=== PATIENT | female | born 1970 | race Caucasian/White ===

== ENCOUNTER 2017-02-11 10:19 | Emergency (ER) | payer OTHER ==
[~2017-02-11] VITALS: Ht 160 cm; Wt 70.8 kg
[~2017-02-11 10:19] MED LIST: AMERGE2.5 MG PO; CREON DR 12,001 EAC1 PO; FLAGYL250 MG PO; TOPIRAMATE50 MG PO
[2017-02-11 11:08] LABS: HEMATOCRIT 42.2 % (36.0-46.0); MCH 31.7 PG (29.0-34.0); MCHC 34.4 G/DL (30.0-36.0); MCV 92.1 FL (83-99); MEAN PLAT.VOLUME 10.6 uM^3 (9.5-12.4); PLATELET COUNT 257 K/uL (156-360); RBC DIS.WIDTH-SD 40.6 % (39-53); RED BLOOD COUNT 4.58 M/uL (3.80-5.20); WHITE BLOOD COUNT 5.6 K/uL (4.1-10.2)
[2017-02-11 11:28] LABS: CHLORIDE 103 mEq/L (99-109); POTASSIUM 4.3 mEq/L (3.7-5.4); SODIUM 139 mEq/L (136-147)
[2017-02-11 11:30] LABS: GLUCOSE 91 mg/dL (70-99)
[2017-02-11 11:31] LABS: ANION GAP 10 MEQ/L (2-14)
[2017-02-11 11:32] LABS: TOTAL BILIRUBIN 0.6 mg/dL (0.0-1.0)
[2017-02-11 11:33] LABS: ALKALINE PHOSPHATASE 95 IU/L (3-129)
[2017-02-11 11:34] LABS: GFR ESTIMATE (CALCULATED) > 59 mL/min/
[2017-02-11 11:35] LABS: QUANTITATIVE HCG < 4.0 MIU/ML; UREA NITROGEN (BUN) 15 mg/dL (9-23)
[2017-02-11 11:35] LABS: ADD MIUA? YES; BILIRUBIN NEGATIVE; BLOOD NEGATIVE; COLOR YELLOW ((YELLOW)); GLUCOSE (STRIP) NEGATIVE; KETONES NEGATIVE; LEUKOCYTES NEGATIVE; NITRITE NEGATIVE; PROTEIN (STRIP) NEGATIVE; SPECIFIC GRAVITY 1.015 (1.000-1.030); UROBILINOGEN 0.2 MG/DL (0.2-1.0)
[2017-02-11 11:37] LABS: LIPASE 96 U/L (1.0-51.0)
[2017-02-11 11:44] LABS: BACTERIA RARE /HPF; EPITHELIAL CELLS 2+ /HPF; MUCUS TRACE /LPF; RED BLOOD CELLS 0-5 /HPF (0-5); UCUL ADDED? NO; WHITE BLOOD CELLS 0-5 /HPF (0-5)
[2017-02-11] MEDS ORDERED: PERCOCET 5/31 TABLET PO (14:07)
[2017-02-11] MEDS ORDERED: PROTONIX20 MG PO (14:07)
[2017-02-11 15:36] VITALS: BP 143/90
== END 2017-02-11 15:43 | disposition home or self-care (01) ==
LOC: EME 10:19
DX: R10.13 Epigastric pain (principal); R74.8 Abnormal levels of other serum enzymes; M79.7 Fibromyalgia; K21.9 Gastro-esophageal reflux disease without esophagitis; Z87.891 Personal history of nicotine dependence
CPT/HCPCS: 74176; 80053; 81003; 83690; 84702; 85027; 99281; 99285; J1885; J2270; J2405; J3010; J7030